=== PATIENT | female | born 1990 | race Caucasian/White ===

== ENCOUNTER 2021-12-31 18:51 | Emergency (ER) | payer OTHER ==
[2021-12-31] MEDS ORDERED: PERCOCET 5/325 T1 EA PO (20:28)
== END 2021-12-31 20:53 | disposition home or self-care (01) ==
LOC: ER1 18:51
DX: S42.025A Nondisplaced fracture of shaft of left clavicle, initial encounter for closed fracture (principal); S70.12XA Contusion of left thigh, initial encounter; R07.89 Other chest pain; F17.200 Nicotine dependence, unspecified, uncomplicated; V49.9XXA Car occupant (driver) (passenger) injured in unspecified traffic accident, initial encounter
CPT/HCPCS: 71045; 73030; 73060; 99283

== ENCOUNTER → 2022-01-23 | Day surgery (SDC) | payer OTHER ==
[~2022-01-23] VITALS: Ht 177.8 cm; Wt 74.8 kg
[~2022-01-23] MED LIST: CALCIUM PO; HYDROCODON-ACE1 EAC6 PO; IBU800 MG PO; PERCOCET 5/325 T1 EA PO; VITAMIN D PO
== END | disposition home or self-care (01) ==
LOC: OR 07:30
DX: S42.022A Displaced fracture of shaft of left clavicle, initial encounter for closed fracture (principal); V49.9XXA Car occupant (driver) (passenger) injured in unspecified traffic accident, initial encounter; G89.18 Other acute postprocedural pain; F17.210 Nicotine dependence, cigarettes, uncomplicated
CPT/HCPCS: 73000; 76000; 84703; C1713; J0171; J0690; J1100; J1170; J2250; J2405; J2704; J2795; J3010